=== PATIENT | female | born 1945 | race Asian ===

== ENCOUNTER 2016-12-30 21:35 | Emergency (ER) | payer MEDICARE ==
[~2016-12-30] VITALS: Ht 139.7 cm; Wt 60.9 kg
[~2016-12-30 21:35] MED LIST: AMLO10TA79 PO; ASPI-956 PO; ATEN50TA7 PO; CALC-794 PO; L. A1CAP7 PO; NAPR220C11 PO; OMEP20CA11 PO; PILO5TAB PO; PSYL PO; RANI150T13 PO; SODI354S PO; VITB1TAB PO; ZES20T PO; [UNRECOGNIZED DRUG - CODE] PO
[2016-12-30 21:45] VITALS: BP 155/92; PULSE 104; RESP 16; O2SAT 98
--- NOTE | 2016-12-30 23:43 | ED.REPORT ---
HPI-Trauma Minor / Fall Date of Service Dec 30, 2016 ED Provider: Jordi Block MD Patient is a 71 year old female with a history of hypertension who presents to the ED via EMS due to a fall. Associated symptoms include right wrist pain, right knee pain, trouble ambulating and left forehead pain. She denies losing consciousness. Patient is not currently on anticoagulants. Nursing Notes Stated Complaint: GLF HURT RIGHT WRIST,LEFT FORHEAD,RIGHT KNEE Chief Complaint: Multiple Trauma/Fall Nursing Notes Reviewed: Yes Allergies: Coded Allergies: acetaminophen (Verified Allergy, Unknown, 12/30/16) erythromycin base (Verified Allergy, Unknown, 12/30/16) hydrocodone (Verified Allergy, Unknown, 12/30/16) oxycodone (Verified Allergy, Unknown, 12/30/16) tramadol (Verified Allergy, Unknown, 11/29/13) Uncoded Allergies: PENICILLIN (Allergy, Mild, stomach feels sick, 02/22/12) Scheduled ASPIRIN-Expunged Drug, Do Not Renew! ([facility] ASPIRIN-Expunged Drug, Do Not James) 81 Mg Tablet. 81 MG PO DAILY AmLODIPine-Expunged Drug, Do Not Renew! (AmLODIPine-Expunged Drug, Do Not Renew! ) 10 Mg Tablet 10 MG PO DAILYWL Atenolol-Expunged Drug, Do Not Renew! (Atenolol-Expunged Drug, Do Not Renew!) 50 Mg Tablet 50 MG PO QAM Calc/D3/Mag/Zn/Senior Quality Assurance Engineer/[place] (Calcium 600/Vit D3-Expunged, Do Not Renew!) 1 Each Tablet 1 EACH PO BID Gabapentin-Expunged Drug, Do Not Renew! (Gabapentin-Expunged Drug, Do Not Renew! ) 100 Mg Capsule 100 MG PO TID L. Acidophilus/Bifid. Animalis (Probiotic 5 Billion Cell Cap) 1 Each Cap.sprink 2 EACH PO BID Lisinopril-Expunged Drug, Do Not Renew! (Lisinopril-Expunged Drug, Do Not Renew! ) 20 Mg Tablet 20 MG PO BID Omeprazole-Expunged Drug, Do Not Renew! (Omeprazole-Expunged Drug, Do Not Renew! ) 20 Mg Capsule. 20 MG PO DAILYAC PSYLLIUM/ASPARTAME-Expunged Drug, Do Not James (METAMUCIL-Expunged Drug, Do Not Renew!) 1,320 Gm Powder 0 PO DAILY TAKE BY ORAL ROUTE DAILY Pilocarpine-Expunged Drug, Do Not Renew! (Salagen-Expunged Drug, Do Not Renew!) 5 Mg Tablet 1 TAB PO TID Ranitidine Hcl (Zantac) 150 Mg Tablet 150 MG PO BID Sodium,Potassium,&Mag Sulfates (Suprep Bowel Prep Kit) 354 Ml Soln.recon 354 ML PO UD VITB&C/IRON FUM/FA/VIT E/AA#16-Expunged Drug, (STRESS FORMULA ENERGY -Expunged Drug, Do Not) 1 Each Tablet 1 EACH PO DAILY Scheduled PRN Hydromorphone (Hydromorphone) 2 Mg Tablet 2 MG PO QID PRN PRN Pain Naproxen Sod-Expunged Drug, Do Not Renew!! (Aleve-Expunged Drug,Do Not Renew!) 220 Mg Capsule 220 MG PO 2D PRN PRN Ondansetron (Ondansetron) 4 Mg Tablet 4 MG PO QID PRN PRN For Nausea General Time Seen by MD: 23:36 Chief Complaint Fall Hx Obtained From: Patient Arrived By: Ambulance Onset Occurred: Just prior to arrival Symptom Duration: Since onset Caused by: Fall on ground Location: Head Knee right Wrist right Quality: Painful Severity: Current: Moderate Context: Immunizations All up to date Recent Healthcare: No recent doctor visit, No recent hospitalization Similar Sx Previous: No Past Medical History Past Medical History Reports: Hypertension Smoking History Unknown if Ever Smoker Social History Other Social History: Good social support Ambulatory Status Independent Review of Systems Constitutional: Denies: Chills, Fever Respiratory: Denies: Non-productive cough, Shortness of breath Musculoskeletal: Reports: Extremity pain Neurologic: Reports: Problem walking, Denies: Numbness, Weakness Complete sys rev & neg: except as marked. Physical Exam Initial Vital Signs Vital Signs (First) Date Time Temp Pulse Resp B/P Pulse Ox O2 Delivery O2 Flow Rate FiO2 12/30/16 21:45 36.3 104 16 155/92 98 Room Air Initial VS: Reviewed, Vital signs abnormal General/Constitutional: Awake, Alert Neck: Atraumatic, Supple, Full range of motion Head / Eyes: Normocephalic, PERRL, EOMI Respiratory / Chest: Atraumatic, Breath sounds NL, Breath sounds = bilat, No respiratory distress Cardiovascular: Heart rate NL, Regular rhythm, Heart sounds NL WRIST: tenderness and swelling of the distal wrist Lower Extremity / Pelvis / MS: Atraumatic, Full range of motion Skin: Atraumatic, Color NL, No rash, Warm, Dry Neurologic: Oriented X3, Speech NL, No motor deficits, No sensory deficits distal radius neurologically intact Psychiatric: Affect NL, Mood NL Interpretation & Diagnostics X-Ray Interpretation Xray Interpretation: no signs of fracture X-Ray Ordered: Knee right Interpretation / Wet Read by: Wet read ED physician Xray Interpretation: fracture of the distal right radius X-Ray Ordered: Wrist right Interpretation / Wet Read by: Wet read ED physician Xray Interpretation: no signs of fracture X-Ray Ordered: Radius ulna right Interpretation / Wet Read by: Wet read ED physician Procedures Splint Application - Fx Mgt Splint Application- Fx Mgt: orthoglass thumb spica splint Time: 23:56 Procedure Performed by: Nurse Precise Anatomic Location: right wrist Type of Immobilization: Sling Definitive Fracture Care: Pain control, Splint Post-Procedure / Complications: Cap refill normal, Post splint vascular nl, Condition improved, Tolerated procedure well, Patient stable Re-Eval/Medical Decision Med Decision/Clinical Course Ground-level fall with minimally impacted nondisplaced fracture of the distal radius. Splinted. She has problems with oral pain medications causing nausea and vomiting. She was sent home with Dilaudid tabs and Zofran. She will follow up with orthopedics. Re-Evaluation/Progress : Time of Eval: 23:56 Re-Evaluation/Progress Note: Discussed plan for splint and discharge. The patient understands and agrees to the plan. All questions were addressed. Counseled Regarding: Diagnosis, Lab results, Need for follow-up, When/why to return to ED Discharge & Departure Impression: Primary Impression: Closed right radial fracture Encounter type: initial encounter Radius location: distal Fracture morphology: unspecified fracture morphology Qualified Code: S52.501A - Unspecified fracture of the lower end of right radius, initial encounter for closed fracture Additional Impressions: Forehead contusion Encounter type: initial encounter Qualified Code: S00.83XA - Contusion of other part of head, initial encounter Contusion of right knee Encounter type: initial encounter Qualified Code: S80.01XA - Contusion of right knee, initial encounter Disposition: Home Discharge Condition All VS Reviewed: Yes Condition: Stable Patient Instructions: Arm Fracture in Adults (ED), Fall Prevention for Older Adults (ED) Additional Instructions: You have a fracture of the right wrist. A temporary splint was placed to immobilize it until a cast can be put on. Ice and elevation. Ibuprofen as needed for pain. Hydromorphone as needed for severe pain, #10 prescription written. Zofran, take before you take your pain medicine to help prevent the nausea that he sometimes get, #10 prescription written. Follow up with Dr. Bo at the [facility] in 3-5 days for reevaluation and casting. Referrals: Manuela Benson MD (PCP) Shimon Medina MD Attestation Portions of this note were transcribed by Kylah Taylor. I, Dr. Block personally performed the history, physical exam and medical decision-making; I reviewed and confirmed the accuracy of the information in the transcribed note. Signed by: Brandy Irizarry, 12/30/16 and 2083 copies to: Manuela Benson MD; Shimon Medina MD, Howard L MD Dec 30, 2016 23:43 Lissette Taylor Dec 30, 2016 23:50
[2016-12-30] MEDS ORDERED: _Ondansetron ODT 4 mg Tablet PO PRN (23:55)
[2016-12-31] MEDS ORDERED: HYDR2TAB28 PO
[2016-12-31] MEDS ORDERED: ONDA-53 PO
[2016-12-31 00:53] VITALS: BP 149/90; PULSE 64; RESP 16; O2SAT 99
--- NOTE | 2016-12-31 07:53 | DRSVH ---
PROCEDURE: X-RAY RIGHT WRIST COMPLETE, MINIMUM THREE VIEWS ([id number]) INDICATIONS: injury TECHNIQUE: 4 views of the wrist were acquired. COMPARISON: None. FINDINGS: Bones: There is a minimally displaced transverse fracture evident involving the distal radius with mi ld dorsal angulation of the distal fracture fragment. No definite intra-articular extension is evide nt. There is no articular surface offset of the distal radius. The bone mineralization throughout t he imaged osseous structures is decreased. There are mild degenerative changes noted involving the b ирина joints of the thumb. Degenerative cystic change within the scaphoid is noted. No suspicious os seous lesions are present. Soft tissues: No suspicious soft tissue calcifications. Mild edema within the subcutaneous tissues is noted about the fracture site. IMPRESSION: Minimally dorsally impacted fracture of the distal radius. No definite articular surface involvement. Dictated by: Fredy Alejandro M.D. on 12/31/2016 at 7:50 Approved by: Fredy Alejandro M.D. on 12/31/2016 at 7:51
--- NOTE | 2016-12-31 07:54 | DRSVH ---
PROCEDURE: X-RAY RIGHT FOREARM, TWO VIEWS ([id number]) INDICATIONS: injury TECHNIQUE: 2 views of the forearm were acquired. COMPARISON: None. FINDINGS: Bones: Subtle fracture involving dorsal aspect of the distal radius is noted without definite articul ar surface involvement. Otherwise, the remainder of the imaged osseous structures of the right forea rm appear intact. The bone mineralization is decreased. No suspicious osseous lesions are identifie d. Soft tissues: No suspicious soft tissue calcifications or masses. Soft tissue swelling of the wrist is noted. IMPRESSION: Mild dorsal impacted distal radius fracture. Dictated by: Fredy Alejandro M.D. on 12/31/2016 at 7:52 Approved by: Fredy Alejandro M.D. on 12/31/2016 at 7:52
--- NOTE | 2016-12-31 07:55 | DRSVH ---
PROCEDURE: X-RAY RIGHT KNEE, THREE VIEWS ([id number]) INDICATIONS: injury TECHNIQUE: 3 views of the knee were acquired. COMPARISON: None. FINDINGS: Bones: The bone mineralization is diffusely decreased. There is no acute fracture or dislocation. N o suspicious osseous lesions are identified. No significant degenerative changes of the knee are lewis dent. Soft tissues: No joint effusion. No suspicious soft tissue calcifications. Mild edema within the p repatellar soft tissues is incidentally noted. IMPRESSION: Osteopenia without acute osseous abnormality of the right knee. Dictated by: Fredy Alejandro M.D. on 12/31/2016 at 7:52 Approved by: Fredy Alejandro M.D. on 12/31/2016 at 7:53
== END 2016-12-31 00:54 | disposition home or self-care (01) ==
LOC: SED 21:35
DX: S52.501A Unspecified fracture of the lower end of right radius, initial encounter for closed fracture (principal); S00.83XA Contusion of other part of head, initial encounter; S80.01XA Contusion of right knee, initial encounter; W18.39XA Other fall on same level, initial encounter; Y93.89 Activity, other specified; Y92.480 Sidewalk as the place of occurrence of the external cause; Y99.8 Other external cause status; I10 Essential (primary) hypertension; Z88.1 Allergy status to other antibiotic agents; Z88.5 Allergy status to narcotic agent; Z88.8 Allergy status to other drugs, medicaments and biological substances